=== PATIENT | female | born 1960 | race Caucasian/White ===

== ENCOUNTER 2016-12-26 07:04 | Day surgery (SDC) | payer OTHER ==
[~2016-12-26 07:04] MED LIST: RINGERS SOLUTION,LACTATED 1,000 ML IV PRN; ceFAZolin SODIUM 2 GM in DEXTROSE 5 % IN WATER 50 ML IV PRN
--- OUTSIDE RECORDS SUMMARY | 2016-12-26 07:09 | XMS REPORT | Continuity of Care Document ---
:1960 Demographics Phone Unavailable Preferred Language Unknown Marital Status Unknown Sabianism Affiliation Unknown Race Unknown Ethnic Group Unknown Author Organization [facility] ([facility]) Address [address] [place] [address] Phone [phone] Care Team Providers Name Role Phone Unavailable Primary Care Provider Unavailable Source Comments This disclosure is being made pursuant to the Care Everywhere program, applicable federal and state laws, and may not contain all informaitonavailable regarding this patient.[facility] ([facility]) Active Allergies and Adverse Reactions Not on File Current Medications Not on file Active Problems Not on file Social History Tobacco Use Types Packs/Day Years Used Date Never Assessed Plan of Care Health Maintenance Due Date Last Done Comments HCV Screening 1960 Hepatitis B Vaccine (1 of 3 - Primary Series) 1960 Tdap Vaccine 1970 Lipid Disorder Screening 1977 MMR Vaccine 1977 Td Vaccine 1977 Cervical Cancer Screening 1989 Mammogram 1999 Colonoscopy 05/28/2009 Influenza Vaccine: Seasonal (#1) 04/18/2016 Results from Last 3 Months Not on file
[2016-12-26] MEDS ORDERED: RINGERS SOLUTION,LACTATED 1,000 ML IV ONE (07:25)
[2016-12-26] MEDS ORDERED: LIDOCAINE HCL 50 ML VIAL IJ ONE (08:00)
[2016-12-26] MEDS ORDERED: BUPIVACAINE HCL 50 ML VIAL IJ ONE (08:00)
[2016-12-26 17:52] VITALS: BP 112/82
== END 2016-12-26 07:05 | disposition home or self-care (01) ==
LOC: AMB 07:04
PROVIDERS: ATTEND Student in an Organized Health Care Education/Training Program
PROC: 0YBN0ZZ Excision of Left Foot, Open Approach (ICD-10-PCS; 2016-12-26)
PROC: 0QSP04Z Reposition Left Metatarsal with Internal Fixation Device, Open Approach (ICD-10-PCS; principal; 2016-12-26 08:00)
PROC: 0QBP0ZZ Excision of Left Metatarsal, Open Approach (ICD-10-PCS; 2016-12-26 08:00)
PROC: 0QBR0ZZ Excision of Left Toe Phalanx, Open Approach (ICD-10-PCS; 2016-12-26 08:00)
DX: M21.612 Bunion of left foot (principal); M77.42 Metatarsalgia, left foot; G57.62 Lesion of plantar nerve, left lower limb; M89.8X9 Other specified disorders of bone, unspecified site; E78.5 Hyperlipidemia, unspecified; M19.90 Unspecified osteoarthritis, unspecified site; Z68.28 Body mass index [BMI] 28.0-28.9, adult